=== PATIENT | male | born 1950 | race American Indian/Alaskan Native ===

== ENCOUNTER 2016-10-07 07:52 | Day surgery (SDC) | payer BC ==
[2016-10-07 09:13] VITALS: BMI 32.5
[2016-10-07] MEDS ORDERED: Propofol 10 mg/ml Inj (20 ML) ONE ×3 (09:47→10:28)
[2016-10-07 14:12] VITALS: TEMP 98
[2016-10-07 14:15] VITALS: O2SAT 98
[2016-10-07 14:20] VITALS: BP 125/75; PULSE 54; RESP 15
== END 2016-10-07 11:55 | disposition home or self-care (01) ==
LOC: C.ENDO 07:52
PROVIDERS: ATTEND Internal Medicine Gastroenterology
DX: K57.30 Diverticulosis of large intestine without perforation or abscess without bleeding (principal); K29.80 Duodenitis without bleeding; D12.3 Benign neoplasm of transverse colon; D12.0 Benign neoplasm of cecum; K29.70 Gastritis, unspecified, without bleeding; K64.8 Other hemorrhoids
CPT/HCPCS: 43239; 45388; 88305; 88313; 88342; J2001; J2704

== ENCOUNTER 2018-01-28 11:02 | Day surgery (SDC) | payer MEDICARE, BC ==
[2018-01-21 12:55] VITALS: BMI 32.9
[2018-01-28 11:40] VITALS: RESP 18
[2018-01-28] MEDS ORDERED: Lidocaine 2% MPF (5 ml) Inj ONE ×2 (12:25→12:26)
[2018-01-28] MEDS ORDERED: Bupivacaine 0.25% 20 ML INJ IJ ONE (12:26)
[2018-01-28] MEDS ORDERED: ceFAZolin 1 gm in NS 2 GM/200 ML BAG IVPB ONE (12:27)
[2018-01-28] MEDS ORDERED: Midazolam 2 MG/2 ML VIAL ONE (12:46)
[2018-01-28] MEDS ORDERED: Propofol 10 mg/ml Inj (20 ML) ONE ×2 (12:46→13:05)
[2018-01-28] MEDS ORDERED: Lidocaine Hydrochloride 5 ML INJ ONE (12:50)
[2018-01-28] MEDS ORDERED: Oxycodone/Acetaminophen 5/325 mg Tab PO PRN ×2 (13:47)
--- NOTE | 2018-01-28 13:51 | PCM.SURG1 ---
Surgeon's Initial Post Op Note - Surgeon's Notes Surgeon: Dr. Blaine Jeong, DPM Psychiatry Adult Physician: Dr. Alejandra Goodson, PGY1 Type of Anesthesia: IV Sedation, Local Anesthesia Administered By: Dr. Gtz Pre-Operative Diagnosis: Right lateral leg ulceration Operative Findings: see dication. I: 20 cc 1:1 mixture of 2% Lidocaine plain and 0.25% Marcaine plain. M: 3-0 Vicryl, Amniox Graft with injectable Post-Operative Diagnosis: same Operation Performed: Wound Debridement with Misonix, wound bed preparation, application of Amniox Skin graft Specimen/Specimens Removed: none Estimated Blood Loss: EBL {In ML}: 5 Blood Products Given: N/A Drains Used: No Drains Post-Op Condition: Good Date of Surgery/Procedure: 01/28/18 Time of Surgery/Procedure: 13:50
[2018-01-28] MEDS ORDERED: Lactated Ringer's 1,000 ML IV SCH (14:00)
[2018-01-28 15:41] VITALS: BP 157/90; PULSE 78; TEMP 98; O2SAT 100
--- NOTE | 2018-01-31 07:29 | OP ---
PROCEDURE DATE: 01/28/2018 PREOPERATIVE DIAGNOSIS: Right lateral leg ulceration. POSTOPERATIVE DIAGNOSIS: Right lateral leg ulceration. PROCEDURE: Right leg wound debridement with removal of all nonviable soft tissue, fulguration of wound bed and application of skin graft. SURGEON: Blaine Jeong DPM OILSEED MEAT PRESSER: Alejandra Goodson, PGY-1. ANESTHESIOLOGIST: Dr. Gtz. ANESTHESIA: IV sedation with local anesthesia. INDICATION: The patient is a 67-year-old male with the above diagnosis. The patient has exhausted all conservative treatment at this time and now requests surgical intervention. The patient signed the consent after careful explanation of risks, benefits, complications, and alternatives for surgical procedure. No guarantees were given nor implied. N.p.o. status was confirmed prior to taking the patient to the OR. PREPARATION: The patient was brought into the operating room and placed on the operating room table in a supine position. A time-out was performed for identification of the correct patient and procedure. The patient received a total of 20 mL of 1:1 mixture of 2% lidocaine plain and 0.25% Marcaine plain in a circumferential fashion to the right lateral leg surrounding the wound. Right foot was then prepped and draped in a normal sterile manner, and the procedure began. No tourniquet was used during the procedure. DESCRIPTION OF PROCEDURE: Attention was then drawn to the right lateral leg wound, measuring 5 cm x 3 cm. The wound was debrided, removing all nonviable tissue using the Misonix until granular tissue is noted. A curette was further utilized to achieve a granular wound bed. The wound was debrided with care being taken to avoid neurovascular structure and good bleeding was noted to the wound. Amniox skin graft with injectable component was then applied to the wound and the crack was secured using 3-0 Vicryl simple sutures. The wound was dressed with bacitracin, Adaptic, 4 x 4, bolster dressing, abdominal pads, Kerlix, and [place]an. POSTOPERATIVE CONDITION: The patient tolerated the local anesthesia and procedure well and was escorted to the recovery room with neurovascular status intact to the right foot and vital signs stable. The patient is to remain nonweightbearing at this time in a surgical shoe. The patient will follow up with Dr. Jeong in his office in one week. Alejandra Goodson MD Blaine Jeong DPM [facility] # [id number] [place]
== END 2018-01-28 15:41 | disposition home or self-care (01) ==
LOC: C.SDS 11:02
PROVIDERS: ATTEND Podiatrist Foot & Ankle Surgery
DX: L97.312 Non-pressure chronic ulcer of right ankle with fat layer exposed (principal)
CPT/HCPCS: 11042; 17110; J0690; J2250; J2704; J3010; Q4148; Q4156

== ENCOUNTER 2018-04-15 10:57 | Day surgery (SDC) | payer MEDICARE, BC ==
[2018-01-21 12:55] VITALS: BMI 32.9
[2018-04-15] MEDS ORDERED: Bupivacaine 0.25% 20 ML INJ IJ ONE (12:16)
[2018-04-15] MEDS ORDERED: Lidocaine Hydrochloride 10 ML INJ ONE (12:16)
[2018-04-15] MEDS ORDERED: Lidocaine 2% MPF (5 ml) Inj ONE (12:18)
[2018-04-15] MEDS ORDERED: Bupivacaine HCl 0.5% PF (30 ml) Inj ONE (12:18)
[2018-04-15] MEDS ORDERED: ceFAZolin 1 gm FROZEN Premix 2 GM/100 ML ML IVPB ONE (12:18)
[2018-04-15] MEDS ORDERED: Midazolam 2 MG/2 ML VIAL ONE (12:21)
[2018-04-15] MEDS ORDERED: Propofol 10 mg/ml Inj (20 ML) ONE (12:21)
[2018-04-15] MEDS ORDERED: Lidocaine Hydrochloride 5 ML INJ ONE (12:22)
[2018-04-15] MEDS ORDERED: Bacitracin Ointment 30 GM TUBE ONE (13:07)
[2018-04-15] MEDS ORDERED: Oxycodone/Acetaminophen 5/325 mg Tab PO PRN ×2 (13:19)
--- NOTE | 2018-04-15 13:22 | PCM.SURG1 ---
Surgeon's Initial Post Op Note - Surgeon's Notes Surgeon: Dr. Blaine Jeong, DPM Evp And Chief Operating Officer: Dr. Alejandra Goodson, PGY1 Type of Anesthesia: IV Sedation, Local Anesthesia Administered By: Dr. Gtz Pre-Operative Diagnosis: Right Lateral Ankle non-healing ulceration Operative Findings: see dictation. I: 18 cc 1:1 mixture of 1% Lidocaine and 0.25% Marcaine plain. M: Amniox graft with 2-0 Vicryl Post-Operative Diagnosis: same Operation Performed: Right ankle wound debridement with Misonix and application of Amniox graft Specimen/Specimens Removed: none Estimated Blood Loss: EBL {In ML}: 5 Blood Products Given: N/A Drains Used: No Drains Post-Op Condition: Good Date of Surgery/Procedure: 04/15/18 Time of Surgery/Procedure: 13:22
[2018-04-15] MEDS ORDERED: Lactated Ringer's 1,000 ML IV SCH (13:30)
[2018-04-15 13:47] VITALS: O2SAT 98
[2018-04-15 14:20] VITALS: BP 140/68; PULSE 66; RESP 18; TEMP 97.9
--- NOTE | 2018-04-20 08:05 | OP ---
PROCEDURE DATE: 04/15/2018 SURGEON: Blaine Jeong DPM ANIMATION PRODUCER: Alejandra Goodson MD, PGY-1. ANESTHESIOLOGIST: Dr. Gtz. ANESTHESIA: IV sedation with location. PREOPERATIVE DIAGNOSIS: Right lateral ankle, nonhealing wound. POSTOPERATIVE DIAGNOSIS: Right lateral ankle, nonhealing wound. PROCEDURE: Right lateral ankle wound debridement with Misonix, and application of skin graft. INDICATION: The patient is a 58-year-old female patient with the above diagnosis. The patient has exhausted all conservative treatment at this time and now requests surgical intervention. The patient signed the consent after careful explanation of risks, benefits, complications, and alternatives for surgical procedure. No guarantees were given nor implied. N.p.o. status was confirmed prior to taking the patient to the OR. PREPARATION: The patient was brought into the operating room and placed on the operating room table in a supine position. A time-out was performed for identification of the correct patient and procedure after induction of IV sedation and administration of 18 mL of 1% lidocaine plain and 0.25% Marcaine plain to the right lateral ankle wound in a circumferential fashion. The patient's right lower extremity was then prepped and draped in the normal sterile manner, and the procedure began. No tourniquet was used during the procedure. DESCRIPTION OF PROCEDURE: Attention was then drawn to the lateral aspect of the right ankle, wound measuring approximately 4 cm x 4 cm was present. The wound was debrided using Misonix at setting 7. Misonix was utilized to remove all fibrotic tissue from the wound bed and wound margins. all remaining fibrotic and nonviable tissue were removed. At that time, an Amniox graft was applied to the wound, and the graftwas secured using 2-0 Vicryl. The wound was then dressed with Adaptic, bolster dry sterile dressings, followed by gauze, Kerlix, webril rolls, and [place]. POSTOPERATIVE CONDITION: The patient tolerated the anesthesia and procedure well, and was escorted to the recovery room with vital signs stable and neurovascular status intact to the right ankle wound. The patient will follow up with Dr. Blaine Jeong in his office. Alejandra Goodson MD Blaine Jeong DPM [facility] # [id number]
== END 2018-04-15 14:30 | disposition home or self-care (01) ==
LOC: C.SDS 10:57
PROVIDERS: ATTEND Podiatrist Foot & Ankle Surgery
DX: L97.312 Non-pressure chronic ulcer of right ankle with fat layer exposed (principal); I73.9 Peripheral vascular disease, unspecified; K21.9 Gastro-esophageal reflux disease without esophagitis; I10 Essential (primary) hypertension
CPT/HCPCS: 11042; J0690; J2250; J2704; J3010; Q4148